=== PATIENT | female | born 1975 | race Caucasian/White ===

== ENCOUNTER 2023-06-01 08:58 | Emergency (ER) | payer OTHER ==
[~2023-06-01] VITALS: Ht 170.2 cm; Wt 77.1 kg
[2023-06-01 09:10] VITALS: BP 167/103
[2023-06-01] MEDS ORDERED: LIDO700A20 TOP (09:33)
== END 2023-06-02 09:58 | disposition home or self-care (01) ==
LOC: ER 08:58
DX: M54.2 Cervicalgia (principal); Z88.6 Allergy status to analgesic agent; Z91.040 Latex allergy status; V89.2XXA Person injured in unspecified motor-vehicle accident, traffic, initial encounter
CPT/HCPCS: 99283; A9270

== ENCOUNTER 2024-04-19 09:57 | Emergency (ER) | payer OTHER ==
[~2024-04-19] VITALS: Ht 170.2 cm; Wt 90.7 kg
[~2024-04-19 09:57] MED LIST: LIDO700A20 TOP
[2024-04-19 10:43] LABS: BASOPHILS ABSOLUTE AUTO 0.06 K/mm3 (0.00-0.23); BASOPHILS PERCENT AUTO 0 % (0-2); EOSINOPHILS PERCENT AUTO 2 % (0-6); Hematocrit 43.5 % (33.0-51.0); Hemoglobin 14.5 g/dL (11.5-16.0); IMMATURE GRAN ABSOLUTE AUTO 0.04 K/mm3 (0.00-0.10); IMMATURE GRAN PERCENT AUTO 0 % (0-1); LYMPHOCYTES ABSOLUTE AUTO 1.16 K/mm3 (0.84-5.20); LYMPHOCYTES PERCENT AUTO 9 % (21-46); MONOCYTES PERCENT AUTO 6 % (4-13); Mean Corpuscular HGB 30.7 pg (26.0-34.0); Mean Corpuscular HGB Conc 33.3 g/dL (31.5-36.5); Mean Corpuscular Volume 92 fL (80-100); NEUTROPHILS ABSOLUTE AUTO 11.21 K/mm3 (1.96-9.15); NEUTROPHILS PERCENT AUTO 83 % (41-73); Platelet Count 307 K/mm3 (150-400); RDW Coefficient Variation 12.7 % (11.7-14.2); RDW Standard Deviation 43.2 fL (35.1-46.3); Red Blood Cell Count 4.72 M/mm3 (3.80-5.20); White Blood Cell Count 13.57 K/mm3 (4.00-11.30)
[2024-04-19] MEDS ORDERED: PROP10 PO (10:47)
[2024-04-19] MEDS ORDERED: PROZAC40 MG PO (10:47)
[2024-04-19] MEDS ORDERED: QUETIAPINE FUM10011 PO (10:47)
[2024-04-19] MEDS ORDERED: LORA10ER PO (10:47)
[2024-04-19] MEDS ORDERED: LOSA50 PO (10:48)
[2024-04-19] MEDS ORDERED: HYDCHL25 PO (10:48)
[2024-04-19] MEDS ORDERED: Pantoprazole Sodium 40 MG Injection IV ONE (10:55)
[2024-04-19] MEDS ORDERED: Ondansetron HCl 2 MG / ML 2ML Vial IV ONE (10:55)
[2024-04-19] MEDS ORDERED: Morphine Sulfate 4 MG/1 ML Injection IV ONE (10:55)
[2024-04-19 11:04] LABS: Albumin, Blood 3.8 g/dL (3.4-5.0); Bilirubin, Total 1.3 mg/dL (0.1-1.0); Bun/Creatinine Ratio 17.5 (12.0-20.0); Calcium, Blood 9.1 mg/dL (8.5-10.1); Creatinine, Blood 0.8 mg/dL (0.40-1.00); Globulin, Blood 3.8 g/dL (2.2-4.0); Potassium, Blood 4.4 mmol/L (3.5-5.5); Total Protein, Blood 7.6 g/dL (6.4-8.2)
[2024-04-19 12:00] VITALS: BP 140/83
[2024-04-19] MEDS ORDERED: Lidocaine 2% Viscous Soln 15 ML UDC PO ONE (12:00)
[2024-04-19] MEDS ORDERED: Atropine/Scopalam/Hyoscam/PB 5 ML UDC PO ONE (12:00)
[2024-04-19] MEDS ORDERED: Mag Hydrox/AL Hydrox/Simeth 30 ML UDC PO ONE (12:00)
[2024-04-19] MEDS ORDERED: PANT40 PO (12:25)
[2024-04-19] MEDS ORDERED: CARAFATE1 GM/10 M1 PO (12:25)
== END 2024-04-19 12:46 | disposition home or self-care (01) ==
LOC: ER 09:57
PROVIDERS: Emergency Medicine
DX: R10.13 Epigastric pain (principal); R10.11 Right upper quadrant pain; E80.7 Disorder of bilirubin metabolism, unspecified; I10 Essential (primary) hypertension; Z79.899 Other long term (current) drug therapy; Z88.6 Allergy status to analgesic agent; Z91.040 Latex allergy status
CPT/HCPCS: 76705; 80053; 83690; 85025; 93005; 93010; 96374; 96375; 99284-25; A9270; C9113; J2270; J2405